=== PATIENT | male | born 1960 | race Two or more races ===

== ENCOUNTER 2018-08-09 10:34 | Emergency (ER) | payer OTHER ==
[~2018-08-09] VITALS: Ht 167.6 cm; Wt 82.0 kg
[2018-08-09 12:48] LABS: CLARITY URINE CLOUDY (CLEAR); COLOR URINE YELLOW (YELLOW); KETONES URINE NEGATIVE (NEGATIVE); LEUKOCYTE ESTERASE URINE NEGATIVE (NEGATIVE); NITRITE URINE NEGATIVE (NEGATIVE); OCCULT BLOOD URINE NEGATIVE (NEGATIVE); PROTEIN URINE NEGATIVE (NEGATIVE); SPECIFIC GRAVITY URINE 1.013 (1.005-1.030); UROBILINOGEN URINE 0.2 E.U./dL (0.2-1.0)
[2018-08-09] MEDS ORDERED: KETOROLAC 60MG/2ML VIAL IM STA (13:20)
[2018-08-09 14:20] VITALS: BP 133/78
== END 2018-08-09 14:30 | disposition home or self-care (01) ==
LOC: ER 10:34
DX: M54.41 Lumbago with sciatica, right side (principal)
CPT/HCPCS: 72110; 81003; 96372; 99284; J1885